=== PATIENT | male | born 1970 | race African-American/Black ===

== ENCOUNTER 2020-11-06 15:45 | Emergency (ER) | payer BC ==
[~2020-11-06] VITALS: Ht 177.8 cm; Wt 99.3 kg
--- NOTE | 2020-11-06 15:58 | NUR ---
OPENING NOTE: PT BIB LAW ENFORCEMENT DUE TO HTN. PT STATES THAT HE TAKES ATENALOL AND HCTZ. PT ADMITS TO USING METH. PT PLACED ON CONTINOUS O2, BP, AND CARDIAC MONITORS. SBP IN THE 200s.
[2020-11-06 16:33] LABS: BASOPHILS % (AUTO) 1 % (0-1); EOSINOPHILS % (AUTO) 2 % (1-7); LYMPHOCYTES % (AUTO) 29 % (22-44); MEAN CORPUSCULAR HEMOGLOBIN 29.1 pg (27.5-34.5); MEAN CORPUSCULAR HGB CONC 33.4 g/dL (33.2-36.2); MEAN PLATELET VOLUME 7.3 fL (7.4-10.4); MONOCYTES % (AUTO) 8 % (2-9); NEUTROPHILS % (AUTO) 60 % (42-75); PLATELET COUNT 283 x10^3/uL (130-400); RED BLOOD COUNT 5.16 x10^6/uL (4.38-5.82); RED CELL DISTRIBUTION WIDTH 15.3 % (9.4-14.8)
[2020-11-06 16:34] LABS: MD NO
[2020-11-06 16:44] LABS: ALANINE AMINOTRANSFERASE 30 U/L (12-78); ALBUMIN 3.8 g/dL (3.4-5.0); ANION GAP 6 mmol/L (5-15); CALCIUM 9.2 mg/dL (8.5-10.1); CHLORIDE 102 mmol/L (98-107); CREATININE 1.71 mg/dL (0.7-1.3)
[2020-11-06 16:46] LABS: ALKALINE PHOSPHATASE 76 U/L (45-117); BILIRUBIN,TOTAL 0.4 mg/dL (0.2-1.0); TOTAL PROTEIN 8.4 g/dL (6.4-8.2)
--- NOTE | 2020-11-06 16:52 | NUR ---
PT SITTING UP IN BED ON PHONE.
[2020-11-06 17:22] VITALS: BP 172/116
--- NOTE | 2020-11-06 17:22 | NUR ---
PT REMOVED ALL MONITORING EQUIPMENT AND PUT CLOTHES BACK ON. PT IS COOPERATIVE. "I THOUGHT I WAS GOOD TO GO"
== END 2020-11-06 17:59 | disposition home or self-care (01) ==
LOC: MERGE 15:45 → ED 16:45
DX: K04.7 Periapical abscess without sinus (principal); N28.9 Disorder of kidney and ureter, unspecified; I10 Essential (primary) hypertension
CPT/HCPCS: 36415; 80053; 85025; 93005; 99284

== ENCOUNTER 2020-11-27 09:05 | Observation (INO) | payer BC, OTHER ==
[~2020-11-27] VITALS: Ht 182.9 cm; Wt 103.4 kg
[2020-11-27] MEDS ORDERED: NITROGLYCERIN OINT 2%, 1GM TP ONE ×2 (09:28→09:30)
[2020-11-27] MEDS ORDERED: NITROGLYCERIN SINGLE TAB 0.4 MG SL ONE (09:28)
[2020-11-27] MEDS: NITROGLYCERIN SINGLE TAB 0.4 MG SL PRN ×3 (09:30→09:41)
[2020-11-27] MEDS ORDERED: SODIUM CHLORIDE FLUSH 10ML SYR IVF ONE (09:30)
[2020-11-27 09:44] LABS: BASOPHILS % (AUTO) 2 % (0-1); EOSINOPHILS % (AUTO) 3 % (1-7); LYMPHOCYTES % (AUTO) 32 % (22-44); MEAN CORPUSCULAR HEMOGLOBIN 29.2 pg (27.5-34.5); MEAN CORPUSCULAR HGB CONC 32.7 g/dL (33.2-36.2); MEAN PLATELET VOLUME 7.3 fL (7.4-10.4); MONOCYTES % (AUTO) 11 % (2-9); NEUTROPHILS % (AUTO) 52 % (42-75); PLATELET COUNT 286 x10^3/uL (130-400); RED BLOOD COUNT 5.17 x10^6/uL (4.38-5.82); RED CELL DISTRIBUTION WIDTH 15.1 % (9.4-14.8)
[2020-11-27 09:55] LABS: ALANINE AMINOTRANSFERASE 25 U/L (12-78); ALBUMIN 3.6 g/dL (3.4-5.0); ANION GAP 4 mmol/L (5-15); CALCIUM 9.2 mg/dL (8.5-10.1); CHLORIDE 104 mmol/L (98-107); CREATININE 1.48 mg/dL (0.7-1.3)
[2020-11-27 09:58] LABS: MD NO
[2020-11-27 09:59] LABS: ALKALINE PHOSPHATASE 64 U/L (45-117); BILIRUBIN,TOTAL 0.6 mg/dL (0.2-1.0); TOTAL PROTEIN 8.2 g/dL (6.4-8.2); TROPONIN I < 0.015 ng/mL (0.000-0.045)
[2020-11-27] MEDS ORDERED: KETOROLAC 30 MG/1 ML ONE (10:30)
[2020-11-27] MEDS ORDERED: KETOROLAC 30 MG/1 ML IVPush ONE (10:30)
[2020-11-27] MEDS ORDERED: ONDANSETRON ODT 4 MG PO PRN (11:00)
[2020-11-27] MEDS ORDERED: ACETAMINOPHEN 325 MG TABLET PO PRN (11:00)
[2020-11-27] MEDS ORDERED: ENALAPRILAT 1.25 MG/ML, 2ML IVPush PRN (11:00)
[2020-11-27] MEDS ORDERED: morphine SULFATE 10 MG/ML, 1ML IVPush PRN (11:00)
[2020-11-27] MEDS ORDERED: ONDANSETRON 2MG/ML, 2ML IVPush PRN (11:00)
[2020-11-27] MEDS ORDERED: MELATONIN 5 MG TABLET PO PRN (11:00)
[2020-11-27] MEDS: LISINOPRIL 10 MG TABLET PO SCH ×2 (11:30→20:22)
[2020-11-27 12:21] VITALS: BP 178/110
[2020-11-27 12:54] LABS: TROPONIN I < 0.015 ng/mL (0.000-0.045)
[2020-11-27] MEDS ORDERED: ENALAPRILAT 1.25 MG/ML, 1ML ONE (12:56)
[2020-11-27 13:01] VITALS: BP 160/110
[2020-11-27 14:00] VITALS: BP 124/78
[2020-11-27 17:16] LABS: TROPONIN I < 0.015 ng/mL (0.000-0.045)
[2020-11-27] MEDS: ATENOLOL 50 MG TABLET PO SCH (17:44)
[2020-11-27 20:19] VITALS: BP 142/91
[2020-11-28 01:47] VITALS: BP 146/82
[2020-11-28 04:49] LABS: BASOPHILS % (AUTO) 1 % (0-1); EOSINOPHILS % (AUTO) 4 % (1-7); LYMPHOCYTES % (AUTO) 39 % (22-44); MEAN CORPUSCULAR HEMOGLOBIN 29.5 pg (27.5-34.5); MEAN CORPUSCULAR HGB CONC 33.2 g/dL (33.2-36.2); MEAN PLATELET VOLUME 7.6 fL (7.4-10.4); MONOCYTES % (AUTO) 11 % (2-9); NEUTROPHILS % (AUTO) 45 % (42-75); PLATELET COUNT 269 x10^3/uL (130-400); RED BLOOD COUNT 4.76 x10^6/uL (4.38-5.82); RED CELL DISTRIBUTION WIDTH 14.7 % (9.4-14.8)
[2020-11-28 04:55] LABS: MD NO
[2020-11-28 04:57] LABS: ANION GAP 4 mmol/L (5-15); CALCIUM 9.2 mg/dL (8.5-10.1); CHLORIDE 105 mmol/L (98-107); CREATININE 1.67 mg/dL (0.7-1.3)
[2020-11-28] MEDS: ATENOLOL 50 MG TABLET PO SCH (05:37)
[2020-11-28] MEDS ORDERED: ASPIRIN 325 MG TABLET EC PO SCH (06:00)
[2020-11-28 06:01] LABS: MICROSCOPIC AUTO
[2020-11-28 07:15] VITALS: BP 137/82
[2020-11-28] MEDS: LISINOPRIL 10 MG TABLET PO SCH (07:55)
[2020-11-28] MEDS ORDERED: REGADENOSON 0.4 MG/5 ML SYRINGE ONE (08:09)
[2020-11-28] MEDS ORDERED: ATEN50TA41 PO ×2 (14:33)
[2020-11-28] MEDS ORDERED: HYDR-3343 PO (14:33)
[2020-11-28 14:50] VITALS: BP 165/84
== END 2020-11-28 17:59 | disposition home or self-care (01) ==
LOC: ED 10:27 → INTOOBSV 10:37 → EDIP 10:37 → 5SO 11:07
PROVIDERS: ADMIT Hospitalist; ATTEND Internal Medicine
DX: R07.89 Other chest pain (principal); I12.9 Hypertensive chronic kidney disease with stage 1 through stage 4 chronic kidney disease, or unspecified chronic kidney disease; N17.9 Acute kidney failure, unspecified; N18.30 Chronic kidney disease, stage 3 unspecified; I25.2 Old myocardial infarction; F15.10 Other stimulant abuse, uncomplicated; F17.210 Nicotine dependence, cigarettes, uncomplicated; Z91.19 Patient's noncompliance with other medical treatment and regimen; Z79.899 Other long term (current) drug therapy
CPT/HCPCS: 36415; 71045; 76770; 78452; 80048; 80053; 81001; 83690; 84484; 85025; 85379; 93005; 93017; 96374; 96375; 99285; A9502; G0378; J1885; J2270; J2785

== ENCOUNTER 2021-04-26 21:11 | Emergency (ER) | payer BC, OTHER ==
[~2021-04-26] VITALS: Ht 172.7 cm; Wt 103.0 kg
[~2021-04-26 21:11] MED LIST: ATEN50TA41 PO; HYDR-3343 PO
[2021-04-26] MEDS ORDERED: BUPIVACAINE 0.25% INFIL ONE (22:00)
[2021-04-26] MEDS ORDERED: LIDOCAINE-MPF 1%, 5ML INFIL ONE (22:00)
[2021-04-26] MEDS ORDERED: BACITRACIN ZINC OINT 500U/GM, 0.9 GM ONE (23:19)
[2021-04-26] MEDS ORDERED: BUPIVACAINE 0.25% ONE (23:19)
[2021-04-26] MEDS ORDERED: LIDOCAINE-MPF 1%, 5ML ONE (23:19)
--- NOTE | 2021-04-26 23:25 | NUR ---
PT PRESENTS TO ED WITH C/O RIGHT DENTAL ABSCESS SINCE YESTERDAY. PT A&O, RESPS EVEN AND UNLABORED, VSS, NADN.
[2021-04-26 23:57] VITALS: BP 163/100
--- NOTE | 2021-04-27 01:07 | NUR ---
erpa at bedside for I&D
--- NOTE | 2021-04-27 01:37 | NUR ---
pt educated on dc instructions and prescription, verbalized understanding. ambulatory to dc desk with steady gait.
== END 2021-04-27 01:39 | disposition home or self-care (01) ==
LOC: ED 04-27 00:07
DX: K04.7 Periapical abscess without sinus (principal); I10 Essential (primary) hypertension; F17.200 Nicotine dependence, unspecified, uncomplicated
CPT/HCPCS: 41800; 99284